=== PATIENT | male | born 1970 | race Caucasian/White ===

== ENCOUNTER 2020-10-13 16:13 | Emergency (ER) | payer SELFPAY ==
[2020-10-13 16:51] VITALS: BP 151/83; PULSE 87; RESP 16; TEMP 36.6; O2SAT 94; BMI 37.7
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
--- NOTE | 2020-10-13 21:17 | PC.NURSE ---
Patient sent home with 1 tab ibuprofen 800 mg PO and 1 tab hydrocodone/APAP 5mg/325mg per provider order.
[2020-10-13 21:29] VITALS: BP 141/90; PULSE 72; RESP 16; O2SAT 96
== END 2020-10-13 21:30 | disposition home or self-care (01) ==
PROVIDERS: Emergency Provider Nurse Practitioner Family; PCP Family Medicine
DX: S13.4XXA Sprain of ligaments of cervical spine, initial encounter (principal); S39.012A Strain of muscle, fascia and tendon of lower back, initial encounter; V89.2XXA Person injured in unspecified motor-vehicle accident, traffic, initial encounter
CPT/HCPCS: 72040; 72100; 99282

== ENCOUNTER 2020-11-04 11:54 | Outpatient (CLI) | payer BC, SELFPAY ==
[2020-11-04 12:52] VITALS: BP 135/88; PULSE 111; RESP 19; O2SAT 92
[2020-11-04 12:56] VITALS: BP 128/86; PULSE 98; RESP 19; O2SAT 94
[2020-11-04 13:41] VITALS: BP 138/88; PULSE 89; RESP 21; O2SAT 92
== END 2020-11-04 14:24 | disposition home or self-care (01) ==
LOC: OPS 11:57
PROVIDERS: PCP Family Medicine; Visit Provider Family Medicine
DX: U07.1 COVID-19 (principal)
CPT/HCPCS: 96365

== ENCOUNTER → 2021-03-07 16:18 | Outpatient (BNVA) | payer BC, SELFPAY | PROVIDERS: PCP Family Medicine; Visit Provider Surgery | DX: Z20.822 Contact with and (suspected) exposure to COVID-19 (principal) | CPT/HCPCS: 87635 ==

== ENCOUNTER 2021-03-11 09:01 | Day surgery (SDC) | payer BC, SELFPAY ==
[2021-03-09 15:51] VITALS: BMI 36.3
--- NOTE | 2021-03-11 09:38 | ANES.PREANE2 ---
Pre-Anesthetic Assessment Pre-Anesthetic Assessment: Height/Weight: Height 1.92 m Weight 133.81 kg Preop Diagnosis: screen Proposed Procedure: Operation Date: 03/11/21 10:30 Proposed Procedures p Colonoscopy 63983 Z12.11(Not Applicable) - Rui Kellogg MD Familial anesthetic complications: None Was Beta Adriane taken within 24 hours: N/A Was Clonidine taken within 24 hours: N/A Last intake: > 8 hrs Social: Social History: No alcohol and No tobacco Airway: MP: 3 Dentition: Partials CV/HEM: CV/HEM: HTN Comments: hx PE on eliquis (multiple blood clots) - holding for 3 days GI: GI: GERD Metabolic: Metabolic: DM, Hyperlipidemia and Morbid obesity Anesthetic Plan: ASA status: 3 Risk of > 500 ml blood loss (7ml/kg in children): No Data Anesthesia Cardiac Studies: No Data to Display
[2021-03-11 09:52] VITALS: BP 128/98; PULSE 88; RESP 18; TEMP 36.6; O2SAT 95
--- NOTE | 2021-03-11 10:02 | P.HP_ITS ---
Same Day Surgery H&P Indication for Procedure/HPI DATE OF PROCEDURE: March 11, 2021 CHIEF COMPLAINT/INDICATIONFOR SURGICAL PROCEDURE: Screening colonoscopy PREOP DIAGNOSIS: Screening colonoscopy PLANNED PROCEDRUE: Operation Date: 03/11/21 10:30 Proposed Procedures p Colonoscopy 35457 Z12.11(Not Applicable) - Rui Kellogg MD This is a pleasant 52 years old gentleman referred to my practice for screening colonoscopy, patient never had a colonoscopy before ROS All systems have been reviewed negative except as all systems have been reviewed negative except as per the above or per problem list Medications/Allergies* Home Medications Medication Instructions Recorded Confirmed Type amoxicillin 500 mg PO BID 03/09/21 03/09/21 History apixaban [Eliquis] 2.5 mg PO DAILY 03/09/21 03/09/21 History atorvastatin 10 mg PO DAILY 03/09/21 03/09/21 History lisinopril 10 mg PO DAILY 03/09/21 03/09/21 History metformin 1,000 mg PO BEDTIME 03/09/21 03/09/21 History omeprazole 20 mg PO DAILY 03/09/21 03/09/21 History Allergies/Adverse Reactions Allergy/AdvReac Type Severity Reaction Status Date / Time No Known Allergies Allergy Verified 03/11/21 10:03 Pertinent Exam Findings alert, oriented x 3, clear to auscultation bilaterally and procedure specific exam findings (Abdominal examination and abdominal examination nontender n ondistended soft) Right hemiscrotal swelling likely due to hydrocele Recommendations Surgery/Procedure today Other Plans: Plan of care; After thorough history and physical examination and reviewing the chart, plan to perform screening colonoscopy. I discussed with the patient in details the risks,benefits,alternatives and indications.The risk of aspiration, bleeding, soft tissue injury, perforation of the colon and other potential concomitant complications were explained to the patient in details,also the potential need for Laproscoy/Laparotomy to repair any related complications including but not limited to colectomy and or Closotomy.The patient understood this well and did agree to proceed. Rationale was carefully and clearly discussed with the patient.Appropriate informed consent have been reviewed and signed All questions have been answered and all concerns have been addressed to patient's satisfaction. Verbal and written Instructions were given to the patient for colonoscopy prep Coding Level of Care Code Acute Transplant Immunologist for Silvia Jin
[2021-03-11] MEDS: sodium chloride 0.9% 1,000 ML 30 ML IV (10:06)
[2021-03-11 10:49] VITALS: BP 115/87; PULSE 75; RESP 16; TEMP 36.3; O2SAT 91
[2021-03-11 10:59] VITALS: BP 140/94; PULSE 79; RESP 16; O2SAT 94
--- NOTE | 2021-03-11 11:34 | ANE.PACU2 ---
Inpatient post-anesthesia follow up: Airway intact: Yes Vital signs: Temperature 97.3 F Pulse Rate 79 Respiratory Rate 16 Blood Pressure 140/94 Pulse Oximetry 94 Oxygen Delivery Me thod Room Air Oxygen Flow Rate Fraction of Inspir ed Oxygen Hydration adequate: Yes Nausea and vomiting: No Mental status: Baseline
== END 2021-03-11 11:17 | disposition home or self-care (01) ==
PROVIDERS: PCP Family Medicine; Visit Provider Surgery
PROC: 0DJD8ZZ Inspection of Lower Intestinal Tract, Via Natural or Artificial Opening Endoscopic (ICD-10-PCS; CPT 45378; principal; 2021-03-11 10:30)
DX: Z12.11 Encounter for screening for malignant neoplasm of colon (principal); I10 Essential (primary) hypertension; K21.9 Gastro-esophageal reflux disease without esophagitis; E11.9 Type 2 diabetes mellitus without complications; E78.5 Hyperlipidemia, unspecified; E66.01 Morbid (severe) obesity due to excess calories; Z68.36 Body mass index [BMI] 36.0-36.9, adult
CPT/HCPCS: 45378; 96360; J7030

== ENCOUNTER → 2021-08-22 08:43 | Outpatient (BNVA) | payer BC, SELFPAY | PROVIDERS: PCP Family Medicine; Visit Provider Family Medicine | DX: R53.83 Other fatigue (principal); M62.838 Other muscle spasm; R73.9 Hyperglycemia, unspecified | CPT/HCPCS: 80053; 80061; 83036 ==

== ENCOUNTER 2021-12-25 12:47 | Emergency (ER) | payer BC, SELFPAY ==
[2021-12-25 12:50] VITALS: BP 134/88; PULSE 84; RESP 18; TEMP 36.6; O2SAT 96; BMI 32.9
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
== END 2021-12-25 14:10 | disposition home or self-care (01) ==
PROVIDERS: Emergency Provider Nurse Practitioner Family; PCP Family Medicine
DX: S80.11XA Contusion of right lower leg, initial encounter (principal); E11.9 Type 2 diabetes mellitus without complications; I10 Essential (primary) hypertension; E78.5 Hyperlipidemia, unspecified; Z79.01 Long term (current) use of anticoagulants; Z79.84 Long term (current) use of oral hypoglycemic drugs; Z86.718 Personal history of other venous thrombosis and embolism
CPT/HCPCS: 73590; 99283

== ENCOUNTER → 2022-03-13 08:25 | Outpatient (BNVA) | payer BC, SELFPAY | PROVIDERS: PCP Family Medicine; Visit Provider Family Medicine | DX: E66.9 Obesity, unspecified (principal); Z00.00 Encounter for general adult medical examination without abnormal findings; E11.9 Type 2 diabetes mellitus without complications; I10 Essential (primary) hypertension | CPT/HCPCS: 80053; 80061; 83036 ==

== ENCOUNTER → 2022-06-16 09:48 | Outpatient (BNVA) | payer BC, SELFPAY | PROVIDERS: PCP Family Medicine; Visit Provider Clinical Nurse Specialist Adult Health | DX: J06.9 Acute upper respiratory infection, unspecified (principal) | CPT/HCPCS: 87400; 87426 ==

== ENCOUNTER 2022-12-11 19:16 | Emergency (ER) | payer BC, SELFPAY ==
[2022-12-11 19:23] VITALS: BP 141/94; PULSE 91; RESP 18; TEMP 36.7; O2SAT 96; BMI 36.2
--- NOTE | 2022-12-11 20:48 | W.ED.EXTPRO ---
HPI - Extremity Problem General: Chief complaint: Extremity Injury, Lower Stated complaint: Sent BY EC Possible Blood Clot Time Seen by Provider: 12/11/22 20:49 Source: patient Mode of arrival: ambulatory Limitations: no limitations History of Present Illness: This 52-year-old male with a history of DVT and pulmonary embolism presents to the ER for evaluation left leg pain. Patient notes that a couple of weeks ago he noticed a spot on the lateral aspect of the left proximal leg. He did not think anything of it. However, the pain persisted and when he mentioned it to the , he was advised to come to the ER to evaluate the leg given that he has an extensive history of DVTs and pulmonary embolism. Patient has no fever, nausea, vomiting, chest pain, shortness of breath or any sign of systemic illness. That started a couple of weeks ago. Associated symptoms: Deny chest pain Review of Systems Const: Denies: chills, body aches or change in appetite Eyes: Denies: change in vision or eye discharge ENMT: Denies: throat pain, dental pain or nasal discharge Card: Denies: chest pain or lightheadedness : Denies: dysuria Musc: Reports: extremity pain (left leg pain); Denies: neck pain or back pain Neuro: Denies: headache(s) or weakness in extremities Psych: Denies: depression Jasson/Lymph: Denies: easy bruising All/Imm: Denies: urticaria, tongue swelling or facial swelling PFS ED PFSH: Medical History Diabetes mellitus Hyperlipidemia Hypertension Social History Smoking and tobacco status: never smoked Physical Exam Const: COMMON NORMALS: no acute distress, patient oriented x3, no limitations and alert HENMT: COMMON NORMALS: normocephalic HEAD & SCALP: normocephalic Eye: COMMON NORMALS: EOMs intact bilaterally Neck/C-Spine: COMMON NORMALS: full ROM and supple Chest: COMMONS NORMALS: normal inspection of the chest Resp: COMMON NORMALS: normal respiratory effort, No retractions, No use of accessory muscles and clear to auscultation bilaterally AUSCULTATION: clear to auscultation bilaterally Cardio: COMMON NORMALS: regular rate, regular rhythm and No murmurs present (Cardio) RATE: regular rate RHYTHM: regular rhythm GI: COMMON NORMALS: Normal to inspection, nondistended, normoactive bowel sounds present and non-tender : COMMON NORMALS: Yes no CVA tenderness BLADDER/KIDNEY EXAM: Yes no CVA tenderness Back/Pelvis: COMMON NORMALS: no CVA tenderness and no thoracic nor lumbar tenderness Extremity: GENERAL: Yes normal exam except as noted OTHER: Varicosities in both lower extremities, left worse than right. Inflamed superficial vein on the proximal left leg. Mildly tender to touch. No erythema, warmth or sign of infection. No sign of trauma. Neuro: COMMON NORMALS: patient oriented x3 and no focal motor deficits SENSORIUM/ORIENTATION: Yes alert Psych: COMMON NORMALS: mental status grossly normal and cooperative Course Consultations: Consultation #1: Case discussed with Dr. Mathew. He does not do IVC filters. Requests that we discuss with the medicine team. Consultation #2: Case discussed with Dr. Hernandez, shot coat tender on-call. He noted that 2.5 mg of Eliquis twice a day is a suboptimal dose for patient. He recommends that patient increases the dose of his Eliquis from 2.5 mg to 5 mg twice a day. He should follow-up with his primary care physician. Reasons to return were discussed. Vital Signs: Vital signs: Vital Signs Temperature 98.1 F 12/11/22 19:23 Pulse Rate 82 12/11/22 23:24 Respiratory Rate 18 12/11/22 19:23 Blood Pressure 146/94 12/11/22 23:24 Pulse Oximetry 92 12/11/22 23:24 Oxygen Delivery Me thod Room Air 12/11/22 19:23 MDM - Extremity (Nontraumatic) Medical Decision Making Medical decision making: This 52-year-old male with an extensive history of DVT presents to the ER with pain and swelling in the left lower extremity. He is currently on 2.5 mg of Eliquis twice a day. Venous Doppler ultrasound reveals a DVT of the left lower extremity. Case discussed with Dr. Hernandez who recommended that patient increase his the dose of his Eliquis from 2.5 mg twice a day to 5 mg twice a day. He should follow-up with his primary care physician and should return with any new or worsening symptoms. Lab Data 12/11/22 21:31 12/11/22 21:31 Radiology Impressions Venous Duplex 12/11/22 21:11 IMPRESSION: There is occlusive DVT in the left peroneal vein. There is thrombophlebitis in the left calf. There is a Leahy's cyst. Laboratory Results WBC 8.80 10^3/uL (3.29-11.43) 12/11/22 21: RBC 5.68 10^6/uL (3.85-5.65) H 12/11/22 21: Hgb 16.00 g/dL (11.27-16.99) 12/11/22 21: Hct 47.6 % (37-53) 12/11/22 21: MCV 83.8 fl (82-101) 12/11/22: MCH 28.2 pg (27-33) 12/11/22 21: MCHC 33.6 g/dL (30-55) 12/11/22: RDW 14.3 % (12.1-15.1) 12/11/22: Plt Count 230 10^3/cmm (157-399) 12/11/22 21: MPV 10.4 fL (7.4-10.4) 12/11/22 21: Neut % (Auto) 54.4 % 12/11/22 21: Lymph % (Auto) 36.3 % 12/11/22 21: [place] % (Auto) 6.7 % 12/11/22 21: Eos % (Auto) 1.7 % 12/11/22: Baso % (Auto) 0.7 % 12/11/22 21: Neut # (Auto) 4.79 10^3/uL (1.8-7.7) 12/11/22 21: Lymph # (Auto) 3.2 10^3/uL (0.8-4.8) 12/11/22 21: [place] # (Auto) 0.6 10^3/uL (0.2-0.9) 12/11/22 21: Eos # (Auto) 0.2 10^3/uL (0.0-0.8) 12/11/22 21: Baso # (Auto) 0.1 10^3/uL (0.0-0.1) 12/11/22 21:31 Nucleated RBC % (auto) 0 % 12/11/22 21:31 Nucleated RBCs # 0.0 /100WBC 12/11/22 21:31 Sodium 135 mmol/L (136-145) L 12/11/22 21:31 Potassium 4.2 mmol/L (3.5-5.1) 12/11/22 21:31 Chloride 99 mmol/L (98-107) 12/11/22 21:31 Carbon Dioxide 25 mmol/L (22-29) 12/11/22 21:31 Anion Gap 15.2 (5-19) 12/11/22 21:31 BUN 20 mg/dL (6-20) 12/11/22 21:31 Creatinine 0.8 mg/dL (0.7-1.2) 12/11/22 21:31 GFR Calculation 101.1 mL/min (90-130) 12/11/22 21:31 Glucose 283 mg/dL (65-115) H 12/11/22 21:31 Calculated Osmolality 293 mOsm/kg (285-295) 12/11/22 21:31 Calcium 9.4 mg/dL (8.5-10.5) 12/11/22 21:31 Total Bilirubin 0.6 mg/dL (0.15-1.2) 12/11/22 21:31 AST 26 U/L (0-40) 12/11/22 21:31 ALT 48 U/L (0-41) H 12/11/22 21:31 Alkaline Phosphatase 139 U/L (40-130) H 12/11/22 21:31 Total Protein 8.1 g/dL (6.6-8.7) 12/11/22 21:31 Albumin 4.7 g/dL (3.5-5.2) 12/11/22 21: Globulin 3.4 g/dL (1.3-4.6) 12/11/22 21:31 Discharge Plan Discharge Patient Disposition: Home Clinical Impression: Acute deep vein thrombosis (DVT) of distal vein of left lower extremity Condition: Stable Prescriptions: No Action losartan 50 mg tablet 50 mg PO DAILY Qty: 90 3RF Eliquis 5 mg tablet 5 mg PO BID Qty: 60 11RF zinc glycinate 30 mg capsule 30 mg PO DAILY ibuprofen 600 mg tablet 600 mg PO Q6H PRN (Reason: pain) Qty: 30 0RF atorvastatin 10 mg tablet 10 mg PO DAILY metformin 1,000 mg tablet 1,000 mg PO BEDTIME omeprazole 20 mg capsule,delayed release(DR/EC) 20 mg PO DAILY Discharge Orders: Discharge ED (Routine); Ordered 12/11/22 Ordered By: Karyn Mike Referrals: Kerwin Mcghee MD [Primary Care Provider] - Discharge Diet: Usual diet Discharge Activity: Resume usual activity Patient Instructions: Opioid Safety, Pain Management Activity Restrictions/Additional Instructions: Increase the dose of your Eliquis from 2.5 mg twice a day to 5 mg twice a day. Continue taking your other usual medications Follow-up with your primary care physician in 2 to 3 days for reevaluation. Return if you develop chest pain, shortness of breath or any new concerning symptoms. Coding Level of Care Code ED Founder Chairman And Chief Creative Officer for Silvia Jin
--- NOTE | 2022-12-11 21:11 | USR_ITS ---
PROCEDURE INFORMATION: Exam: US Duplex Left Lower Extremity Veins, Limited Exam date and time: 12/11/2022 9:46 PM Age: 52 years old Clinical indication: Edema, localized; Lower extremity, left; Patient HX: History of multiple lle dvts, beginning 7 years ago with pulmonary emboli. He is taking eliquis. Last lle dvt 3 years ago. ; Additional info: Left leg pain, HX of dvt TECHNIQUE: Imaging protocol: Real-time duplex ultrasound of the left extremity with 2-D so scale, color Doppler flow and spectral waveform analysis including responses to compression and other maneuvers (when performed) with image documentation. Limited exam focused on the left lower extremity veins. COMPARISON: US scrotum [id number] 06/22/2016 1:35 PM FINDINGS: Left deep veins: There is thrombus in the left peroneal vein which does not compress and there is no significant flow. The common femoral, femoral, proximal profunda femoral and popliteal veins are patent without thrombus. Normal Doppler waveforms. Normal compressibility and/or augmentation response. Superficial veins: There are superficial veins in the left calf which are tortuous and thrombosed. Saphenofemoral junction is patent without thrombus. Soft tissues: There is a 3.3 x 1.2 x 1 cm Leahy's cyst in the left popliteal fossa. US/CV venous duplex [facility] [id number] IMPRESSION: There is occlusive DVT in the left peroneal vein. There is thrombophlebitis in the left calf. There is a Leahy's cyst.
[2022-12-11 21:52] LABS: Basophils # 0.1 10^3/uL (0.0-0.1); Basophils % 0.7 %; Eosinophils # 0.2 10^3/uL (0.0-0.8); Eosinophils % 1.7 %; Hematocrit 47.6 % (37-53); Lymphocytes # 3.2 10^3/uL (0.8-4.8); Lymphocytes % 36.3 %; Mean Corpuscular HGB Conc 33.6 g/dL (30-55); Mean Corpuscular Hemoglobin 28.2 pg (27-33); Mean Corpuscular Volume 83.8 fl (82-101); Mean Platelet Volume 10.4 fL (7.4-10.4); Monocytes # 0.6 10^3/uL (0.2-0.9); Monocytes % 6.7 %; Neutrophils # 4.79 10^3/uL (1.8-7.7); Neutrophils % 54.4 %; Nucleated Red Blood Cells % 0 %; Platelet Count 230 10^3/cmm (157-399); Red Blood Count 5.68 10^6/uL (3.85-5.65); Red Cell Distribution Width 14.3 % (12.1-15.1)
[2022-12-11 22:00] LABS: Alanine Aminotransferase 48 U/L (0-41); Albumin Level 4.7 g/dL (3.5-5.2); Alkaline Phosphatase 139 U/L (40-130); Anion Gap 15.2 (5-19); Aspartate Amino Transferase 26 U/L (0-40); Blood Urea Nitrogen 20 mg/dL (6-20); Calcium 9.4 mg/dL (8.5-10.5); Carbon Dioxide 25 mmol/L (22-29); Chloride 99 mmol/L (98-107); Globulin 3.4 g/dL (1.3-4.6); Glomerular Filtration Rate 101.1 mL/min (90-130); Glucose 283 mg/dL (65-115); Osmolality Calculated 293 mOsm/kg (285-295); Potassium 4.2 mmol/L (3.5-5.1); Sodium 135 mmol/L (136-145); Total Bilirubin 0.6 mg/dL (0.15-1.2); Total Protein 8.1 g/dL (6.6-8.7)
[2022-12-11 23:24] VITALS: BP 146/94; PULSE 82; O2SAT 92
== END 2022-12-11 23:23 | disposition home or self-care (01) ==
PROVIDERS: Emergency Provider Family Medicine; PCP Family Medicine
DX: I82.4Z2 Acute embolism and thrombosis of unspecified deep veins of left distal lower extremity (principal); Z79.01 Long term (current) use of anticoagulants; Z79.84 Long term (current) use of oral hypoglycemic drugs; E11.9 Type 2 diabetes mellitus without complications; E78.5 Hyperlipidemia, unspecified; I10 Essential (primary) hypertension
CPT/HCPCS: 80053; 85025; 93971; 99284

== ENCOUNTER → 2023-01-08 10:47 | Outpatient (BNVA) | payer BC, SELFPAY | PROVIDERS: PCP Family Medicine; Visit Provider Family Medicine | DX: E78.5 Hyperlipidemia, unspecified (principal); I10 Essential (primary) hypertension | CPT/HCPCS: 80053; 80061; 83036 ==

== ENCOUNTER → 2023-03-21 10:44 | Outpatient (BNVA) | payer BC, SELFPAY | PROVIDERS: PCP Family Medicine; Visit Provider Family Medicine | DX: E78.5 Hyperlipidemia, unspecified (principal); I10 Essential (primary) hypertension; E11.9 Type 2 diabetes mellitus without complications | CPT/HCPCS: 80053; 80061; 83036 ==

== ENCOUNTER → 2023-12-13 09:16 | Outpatient (BNVA) | payer BC, SELFPAY | PROVIDERS: PCP Family Medicine; Visit Provider Family Medicine | DX: E11.9 Type 2 diabetes mellitus without complications (principal); I10 Essential (primary) hypertension; E78.5 Hyperlipidemia, unspecified | CPT/HCPCS: 80053; 80061; 83036 ==

== ENCOUNTER → 2023-12-17 15:49 | Outpatient (BNVA) | payer BC, SELFPAY | PROVIDERS: PCP Family Medicine; Visit Provider Family Medicine | DX: Z79.01 Long term (current) use of anticoagulants (principal) | CPT/HCPCS: 85025 ==

== ENCOUNTER → 2024-01-06 12:38 | Outpatient (BNVA) | payer BC, SELFPAY | PROVIDERS: PCP Family Medicine; Visit Provider Nurse Practitioner | DX: J06.9 Acute upper respiratory infection, unspecified (principal) | CPT/HCPCS: 87400 ==

== ENCOUNTER → 2024-01-17 14:48 | Outpatient (BNVA) | payer BC, SELFPAY | PROVIDERS: PCP Family Medicine; Visit Provider Family Medicine | DX: E11.9 Type 2 diabetes mellitus without complications (principal) | CPT/HCPCS: 82962 ==

== ENCOUNTER → 2024-02-12 17:01 | Outpatient (BNVA) | payer BC, SELFPAY | PROVIDERS: PCP Family Medicine; Visit Provider Emergency Medicine | DX: M25.562 Pain in left knee (principal) | CPT/HCPCS: 73562 ==

== ENCOUNTER → 2024-02-21 08:34 | Outpatient (BNVA) | payer BC, SELFPAY | PROVIDERS: PCP Family Medicine; Visit Provider Family Medicine | DX: E11.9 Type 2 diabetes mellitus without complications (principal); I10 Essential (primary) hypertension; E78.5 Hyperlipidemia, unspecified | CPT/HCPCS: 82962 ==

== ENCOUNTER → 2024-02-22 09:32 | Outpatient (BNVA) | payer BC, SELFPAY | PROVIDERS: PCP Family Medicine; Visit Provider Nurse Practitioner | DX: M25.562 Pain in left knee (principal); M17.12 Unilateral primary osteoarthritis, left knee; S83.412A Sprain of medial collateral ligament of left knee, initial encounter; W18.39XA Other fall on same level, initial encounter | CPT/HCPCS: 73560; 73565 ==